=== PATIENT | male | born 1945 | race Caucasian/White ===

== ENCOUNTER → 2017-04-12 | Outpatient (CLI) | payer MEDICARE, OTHER ==
--- NOTE | 2017-04-14 13:56 | US ---
EXAMINATION TYPE: US prostate transrectal DATE OF EXAM: 04/12/2017 9:14 AM COMPARISON: NONE CLINICAL HISTORY: R97.20 elevated PSA. This examination was performed using the transrectal probe. EXAM MEASUREMENTS: Gland Size: 5.5 x 3.6 x 5.1 cm Volume: 52.1 ml Predicted PSA: 6.25 Actual PSA (if available):4.8 Patient has a history of colostomy Jun 2016, surgical report was obtained to be sure procedure could be safely performed. Probe inserted until resistance felt, seminal vessels not seen. Peripheral gland somewhat heterogeneous, no definite nodule seen. IMPRESSION: Prostate glandular enlargement. Otherwise unremarkable study Predicted PSA = volume x 0.12 ng/ml Calculated Volume = 0.5236 x L x W x H
== END | disposition home or self-care (01) ==
LOC: RADUSMAIN 07:46
PROVIDERS: ATTEND Internal Medicine
DX: N40.0 Benign prostatic hyperplasia without lower urinary tract symptoms (principal)
CPT/HCPCS: 76872

== ENCOUNTER → 2023-12-19 | Outpatient (CLI) | payer MEDICARE ==
--- NOTE | 2023-12-19 11:55 | FL ---
EXAMINATION TYPE: FL barium swallow w video DATE OF EXAM: 12/19/2023 CLINICAL HISTORY: 78-year-old male R13.13, pharyngeal Dysphagia. TECHNIQUE: Deglutition study is performed utilizing thin liquid barium, honey and nectar thick liqui d barium, barium thick applesauce, and barium coated cracker. Total fluoroscopy time 3 minutes 10 seconds. Total images: None. Real-time fluoroscopy support was provided to speech pathology. Total DAP: 20 mGycm2. COMPARISON: None. FINDINGS: There is a sizable Zenker's diverticulum noted which progressively accumulates suggesting material. T here is spontaneous reflux of material in the Zenker's diverticulum with progressive accumulation in the hypopharynx and upper cervical esophagus. Moderate CP muscle hypertrophy prolongs the hypopharyng eal residuals. There is an episode of silent aspiration noted with thin liquids. Additional mild vallecular residuals and mild weakness in movement of the posterior tongue base. No other penetration or aspiration is seen. IMPRESSION: 1. Sizable Zenker's diverticulum which spontaneously empties its contents into the hypopharynx. These prominent residuals are exacerbated by the moderate CP muscle hypertrophy. Recommend GI evaluation. 2. An episode of silent aspiration with thin liquids. 3. Mild weakness of the posterior tongue base and some vallecular residuals. Please refer to speech therapist notes for further details if necessary.
== END | disposition home or self-care (01) ==
LOC: RADFLMAIN 10:47
PROVIDERS: ATTEND Otolaryngology
DX: R13.13 Dysphagia, pharyngeal phase (principal); K22.5 Diverticulum of esophagus, acquired; R53.1 Weakness
CPT/HCPCS: 74230

== ENCOUNTER → 2024-01-20 | Outpatient (CLI) | payer MEDICARE ==
[2024-01-20 10:42] LABS: African American GFR (CKD) 63 (>60 ml/min/1.73 sqM); Blood Urea Nitrogen 24 mg/dL (9-20); Non-African American GFR(CKD) 54 (>60 ml/min/1.73 sqM)
--- NOTE | 2024-01-20 11:57 | CT ---
EXAMINATION TYPE: CT soft tissue neck w con DATE OF EXAM: 01/20/2024 COMPARISON: None HISTORY: 78-year-old male acquired diverticulum of esophagus, K22.5. TECHNIQUE: Contiguous axial scanning of the soft tissues of the neck performed with IV Contrast, jennifer ent injected with 100 mL of Isovue 300. Coronal/sagittal reconstructions performed. CT DLP: 317.4 mGycm Automated exposure control for dose reduction was used. 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 Tiny 4 mm hypodense nodule right lobe of the thyroid gland. The submandibular glands are satisfactory. Parotid glands are atrophic. Nasopharynx is clear. Some residual barium coating the tongue, vallecular space, and mendes of the hyp opharynx. We note deep penetration of barium along with coating of the vocal folds and miniscule extension ante riorly below the vocal folds. Additional trace barium in the upper trachea. There is filling of an outpouching measuring approximately 3.0 cm craniocaudal by 1.2 cm AP by 1.6 cm wide at the C7 level and likely some refluxing barium into the upper cervical esophagus. No cervical lymphadenopathy seen. The globes are myopic. The left eye appears to be turned inward. Clinically correlate to exclude any abnormality of lens positioning. There is lobulated mucosal thickening floor of the left maxillary sinus. Mastoid air cells are well-p neumatized. Leftward nasal septal deviation. Visualized intracranial structures show no gross abnormality. Bones: There is moderate to advanced degenerative disc disease C5-C6 and moderate elsewhere mid to lo wer cervical spine. Degenerative grade 1 anterolisthesis C4-C5 and C7-T1. IMPRESSION: 1. BARIUM FILLING A ZENKER'S DIVERTICULUM. THE DIVERTICULUM MEASURES 3.0 X 1.2 X 1.6 CM AT THE C7 LEV EL. SUSPECT SOME REFLUXING BARIUM FROM HERE INTO THE UPPER CERVICAL ESOPHAGUS. 2. TRACE BARIUM ASPIRATION.
--- NOTE | 2024-01-20 18:23 | FL ---
EXAMINATION TYPE: FL barium swallow DATE OF EXAM: 01/20/2024 COMPARISON: Modified barium swallow 12/19/2023 HISTORY: Zenker's diverticulum TECHNIQUE: A Double contrast esophagram study is performed. FINDINGS: Contrast passes from the distal esophagus through the gastric sleeve with mild hesitancy. N o extravasation of contrast is evident. During the initial swallowing there is a large pouch evident within the proximal esophagus compatibl e with a Zenker's diverticulum. This is identified throughout the exam. Note is made during the exam was some silent aspiration of barium. The horizontal drinking position there is incomplete stripping esophageal bolus. Secondary contracti on was observed compatible with mild presbyesophagus. There is incomplete emptying of the Zenker's di verticulum during the exam. No intraluminal or extramural defects of the more distal esophagus was evident. IMPRESSION: 1. Zenker's diverticulum. 2. Mild presbyesophagus. 3. Silent aspiration
== END | disposition home or self-care (01) ==
LOC: RADUSWWP 09:33
PROVIDERS: ATTEND Otolaryngology
DX: K22.5 Diverticulum of esophagus, acquired (principal); K22.89 Other specified disease of esophagus
CPT/HCPCS: 82565; 84520; 74220; 70491; 36415; Q9967